=== PATIENT | male | born 1965 | race Caucasian/White ===

== ENCOUNTER 2019-03-09 20:57 | Emergency (ER) | payer OTHER, SELFPAY ==
[2019-03-09 20:57] VITALS: BP 118/88; PULSE 100; RESP 20; TEMP 37.4; O2SAT 97; BMI 26.1
[2019-03-09 21:10] VITALS: TEMP 37.4
--- NOTE | 2019-03-09 21:20 | ED.DCSUM_ITS ---
- ER Visit Summary Date of Service: 03/09/19 Chief Complaint: Cough History of Present Illness: The patient is a 53 M who states that several days ago he began to get some chills and sore throat. Then developed cough with some occasional sputum some chest soreness generalized myalgias headache some nasal c ongestion now believes that he had a fever. He has been using some [id number] cold medicine that contains acetaminophen. He is a non-smoker. He is otherwise a very healthy individual. Takes no medications. Physical Examination: Oral temperature 99.4 heart rate of 100 respirations are 20 pulse ox 97% on room air blood pressure 118/88 Gen: Well-nourished well-developed Head: Normocephalic atraumatic Eyes: Perrl EOMI ENT: TMs clear turbinate edema moist mucous membranes Neck: Supple no lymphadenopathy no JVD nontender CVS: Regular rate rhythm no murmurs normal S1-S2 Respiratory: No distress rhonchorous lung sounds at the bases left greater than right chest nontender Abdomen: Soft nontender nondistended normal bowel sounds no masses Back: Nontender Extremity: Nontender no edema Skin: Normal color no rash Neuro: alert orientated ?3 CN II-XII intact normal strength sensation reflexes gait cerebellar Psych: Normal affect normal mood Test Results: Influenza swab and chest x-ray are obtained. These were negative. Emergency Department Course and Treatment: Started on albuterol MDI as well as Motrin. Also write for doxycycline. The patient has been having fever and clinically would have pneumonia. And is to orally hydrate return if worsening or concerns Impression: 1. Acute bronchitis with bronchospasm This note was generated with [employer] dictation software. It may contain incorrect words, spelling, and punctuation that were not noted in review of the chart fern or to signing ED Disposition - Plan for ED Patient: Disposition: Home or Assisted Living Instructions: BRONCHITIS, Antiobiotic Treatment (Adult) Prescriptions: Doxycycline 100 mg PO BID #19 cap Prescription Printed Ibuprofen [Motrin] 800 mg PO TID PRN PRN #20 tab PRN Reason: Fever or pain Prescription Printed Albuterol Inhaler [Ventolin Hfa] 2 puff INHALATION Q4H PRN PRN #1 inhaler PRN Reason: Wheezing Prescription Printed Referrals: Sly Ladd DO [Primary Care Provider] - 3-5 Days if not improving
[2019-03-09] MEDS: Ibuprofen 400 MG Tablet 800 MG PO (21:23)
--- NOTE | 2019-03-09 21:25 | RAD_ITS ---
STUDY: X-RAY CHEST REASON FOR EXAM: Male, 53 years old. Cough, fever TECHNIQUE: Frontal and lateral views COMPARISON: None. FINDINGS: The lungs are clear and expanded. There is no demonstrated pleural abnormality. Normal size heart. Normal mediastinum and thom. Normal visualized pulmonary arteries. Normal visualized aortic arch and descending thoracic aorta. Normal visualized thoracic spine. Normal visualized ribs, clavicles, and shoulders. There is no demonstrated abnormality of the visualized soft tissue structures of the upper abdomen. RAD/Chest PA and Lateral IMPRESSION: Normal x-ray examination of the chest. Electronically Signed: Hussein Vicente DO at 21:52 EST Tel [phone], Service support ,
[2019-03-09] MEDS: Doxycycline 100 MG CAPSULE PO (22:10)
[2019-03-09 22:16] VITALS: BP 117/82; PULSE 99; RESP 16; O2SAT 97
== END 2019-03-09 22:16 | disposition home or self-care (01) ==
PROVIDERS: Emergency Provider Emergency Medicine; PCP Family Medicine
DX: J20.9 Acute bronchitis, unspecified (principal); Z86.73 Personal history of transient ischemic attack (TIA), and cerebral infarction without residual deficits
CPT/HCPCS: 71046; 87804; 99283

== ENCOUNTER 2023-02-28 13:40 | Emergency (ER) | payer OTHER, SELFPAY ==
[2023-02-28 13:41] VITALS: BP 124/88; PULSE 76; RESP 14; TEMP 36.4; O2SAT 98; BMI 25.1
--- NOTE | 2023-02-28 15:07 | CT_ITS ---
STUDY: CT CERVICAL SPINE WITHOUT CONTRAST REASON FOR EXAM: Male, 57 years old. Injury/Pain following a fall. RADIATION DOSAGE (If Supplied By Facility): CTDIvol = ( 22.50 ) mGy, DLP = ( 611.09 ) mGycm TECHNIQUE: High resolution transaxial imaging was performed without contrast material. Sagittal and coronal images were reconstructed. Individualized dose optimization techniques were used for this CT. COMPARISON: None FINDINGS: Normal craniovertebral junction. Normal anterior atlantoaxial articulation. Normal odontoid process. There is straightening of the normal cervical lordosis. Normal vertebral bodies and posterior osseous elements. C2-3: Normal endplates. Normal disc height and morphology. Normal central canal and intervertebral neuroforamina. C3-4: Normal endplates. Normal disc height and morphology. Normal central canal and intervertebral neuroforamina. C4-5: Normal endplates. Normal disc height and morphology. Normal central canal and intervertebral neuroforamina. C5-6: Mild degree of disc space narrowing and spondylosis. C6-7: Mild degree of disc space narrowing and spondylosis. C7-T1: Normal endplates. Normal disc height and morphology. Normal central canal and intervertebral neuroforamina. Normal visualized soft tissue structures. CT/Spine Cervical without Contras IMPRESSION: Multilevel degenerative changes, as described above. Electronically Signed: Enzo Carmichael MD at 15:48 EST ,
--- NOTE | 2023-02-28 15:07 | ED.VIS.FALL ---
HPI HPI - Fall History of Present Illness Chief Complaint: Trauma Informant: patient Occured/Mechanism Occurred: Days (2) Fall from Height (ft): 18 Usually ambulates: Without assistance Pain/Injury Location: Lower cervical and upper thoracic spine Pain Location: neck and back Quality of Pain: Sharp Worsened by: Certain movements and certain positions Relieved by: Ibuprofen Associated Symptoms Associated Symptoms: Positive for Parasthesias; Negative for Weakness, Loss of function, Inability to ambulate, Loss of consciousness or Amnesia Narrative Narrative: Patient presents after a fall that occurred 2 days ago. Patient fell approximately 18 feet and landed on his neck and upper back. Patient states his pain has been constant for the past couple days. Patient states it is sharp. Patient states it is worse with certain movements. Patient states ibuprofen has been helping. Patient admits to some intermittent tingling in his neck area as well as down his left arm. Patient denies any weakness. Patient denies any loss of consciousness with the fall. Patient denies any other injuries. PFSH PFSH Medical History no medical history no medical history Home Medications albuterol sulfate 90 mcg/actuation aerosol inhaler 2 puff inhalation Q4H PRN PRN Wheezing ##1 03/09/19 [Rx Last Taken Unknown] doxycycline monohydrate 100 mg capsule 100 mg PO BID #19 caps 03/09/19 [Rx Last Taken Unknown] garlic 1 ea PO DAILY 03/09/19 [History Last Taken Unknown] ibuprofen 800 mg tablet 800 mg PO TID PRN PRN Fever or pain #20 tabs 03/09/19 [Rx Last Taken Unknown] multivitamin with minerals 1 ea PO DAILY 03/09/19 [History Last Taken Unknown] Allergy/AdvReac Type Severity Reaction Status Date / Time No Known Allergies Allergy Verified 02/28/23 13:42 Surgical History Hx of arthroscopic knee surgery Hx of arthroscopy of shoulder Social History Smoking Status: Never smoker ROS ROS ED Constitutional Constitutional ED: Denies chills or fever(s) Eyes Eyes: Denies blurry vision or change in vision ENT ENT ED: Denies rhinorrhea or sore throat Cardiovascular Cardiovascular: Reports chest pain; Denies palpitations Respiratory/Chest Respiratory/Chest: Denies cough or dyspnea Gastrointestinal Gastrointestinal: Denies nausea or vomiting Genitourinary Genitourinary ED: Denies dysuria or hematuria Musculoskeletal Musculoskeletal: Reports back pain and neck pain Integumentary Denies abscess or rash Neurologic Neurologic: Denies headache(s) or weakness Allergic/Immunologic Allergic/Immunologic ED: Denies mouth swelling or urticaria EXAM Physical Exam Const Vital Signs: 02/28/23 13:41 02/28/23 15:46 Temperature 97.6 F L Temperature Source Temporal Pulse Rate 76 Respiratory Rate 14 Respiratory Effort Normal Respiratory Depth Normal Respiratory Pattern Normal Blood Pressure 124/88 H Blood Pressure Mean 100 Pulse Ox 98 Oxygen Delivery Method Room Air Room Air Positive well nourished and well developed General Appearance ED: well developed and NAD HEENT Reports normocephalic atraumatic Neck Neck Narrative: There is tenderness over the lower cervical spine. There is no edema or ecchymosis. There is no bony crepitance or step-off noted. Range of motion was slightly limited in all motions of the cervical spine secondary to pain. Resp normal respiratory effort and clear to auscultation bilaterally Cardio regular rate and regular rhythm GI non-tender and non-distended Palpation: soft Back/Spine Back/Spine Narrative: There is tenderness over the upper thoracic spine. There is no edema or ecchymosis. There is no bony crepitance or step-off. Range of motion was limited in all motions of the thoracic spine secondary to pain. Cervical Spine: cervical spine tenderness Cervical Spine Tenderness Details: C5, C6, C7 and T1 Thoracic Spine / Upper Back: thoracic spinal tenderness T1, T2, T3 and T4 Neuro oriented x3, CN's II-XII intact bilaterally, moves all extremities, no focal motor deficits and no sensory deficits noted [place] Coma Scale: document GCS findings Spontaneous Obeys Commands Oriented 15 Sensorium / Orientation: alert Motor Exam: strength 5/5 throughout MDM MDM MDM Narrative Medical decision making narrative: Differential diagnosis includes cervical spine fracture, thoracic spine fracture, contusion, and strain. X-rays of the thoracic spine will be obtained to assess for fracture. CT scan of the cervical spine will be obtained to assess for fracture. Radiography Diagnostic Testing: Clinical Impression(s) from Imaging Studies Cervical Spine CT 02/28/23 15:07 IMPRESSION: Multilevel degenerative changes, as described above. Electronically Signed: Enzo Carmichael MD at 15:48 EST , Thoracic Spine X-Ray 02/28/23 15:30 IMPRESSION: Multilevel disc space narrowing. Electronically Signed: Enzo Carmichael MD at 15:49 EST , CT scan of the cervical spine was obtained. There are degenerative changes but there is no acute fracture or dislocation. This was interpreted by the radiologist and was also independently reviewed by myself. X-rays of the thoracic spine were obtained. There are 3 views. On my independent interpretation, there is no acute fracture or spondylolisthesis. Radiologist also interpreted the x-rays and agrees. Treatment and Re-Evaluation Narrative: Patient was advised of his findings. Patient is feeling better on reevaluation. Patient was instructed to continue taking ibuprofen as needed for pain. Patient was instructed to use ice to the area. Patient was instructed to follow-up with his primary care physician in 5 to 7 days. Patient understood and was agreeable with the plan. All questions were answered. Discharge Plan Triage Chief Complaint: Trauma ED Provider: Jad Villar Dx/Rx/DC Orders Clinical Impression: Acute cervical myofascial strain, Acute thoracic myofascial strain Instructions: ED Neck Sprain or Strain, ED Thoracic Spine Strain Prescriptions: No Action multivitamin with minerals 1 EACH tablet 1 ea PO DAILY garlic 1 EACH tablet 1 ea PO DAILY ibuprofen 800 MG tablet 800 mg PO TID PRN PRN (Reason: Fever or pain) Qty: 20 0RF doxycycline monohydrate 100 MG capsule 100 mg PO BID Qty: 19 0RF albuterol sulfate 1 INHALER inhaler 2 puff inhalation Q4H PRN PRN (Reason: Wheezing) Qty: 1 0RF Primary Care Provider: Sly Ladd Referrals: Sly Ladd DO [Primary Care Provider] - 5-7 Days Disposition Disposition: Home, Self Care
--- NOTE | 2023-02-28 15:30 | RAD_ITS ---
STUDY: X-RAY - THORACIC SPINE REASON FOR EXAM: Male, 57 years old. Injury/Pain due to a fall. TECHNIQUE: 3 view(s) of the thoracic spine were obtained. COMPARISON: None. FINDINGS: Normal kyphosis of the thoracic spine. There is no substantial scoliosis. There is multilevel endplate spondylosis of the thoracic vertebrae. There is multilevel disc space narrowing of the thoracic spine. The soft tissue structures are unremarkable. RAD/Thoracic Spine 3 Views IMPRESSION: Multilevel disc space narrowing. Electronically Signed: Enzo Carmichael MD at 15:49 EST ,
[2023-02-28 16:04] VITALS: PULSE 67; RESP 16; O2SAT 100
== END 2023-02-28 16:05 | disposition home or self-care (01) ==
PROVIDERS: Emergency Provider Emergency Medicine; PCP Family Medicine; Visit Provider Emergency Medicine
DX: S16.1XXA Strain of muscle, fascia and tendon at neck level, initial encounter (principal); S29.019A Strain of muscle and tendon of unspecified wall of thorax, initial encounter; W19.XXXA Unspecified fall, initial encounter
CPT/HCPCS: 72072; 72125; 99282

== ENCOUNTER → 2023-07-01 | Outpatient (CLI) | payer SELFPAY, OTHER | END | disposition home or self-care (01) | PROVIDERS: PCP Family Medicine; Referring Provider Family Medicine; Visit Provider Family Medicine | DX: M79.604 Pain in right leg (principal); M79.89 Other specified soft tissue disorders | CPT/HCPCS: 93971 ==